=== PATIENT | female | born 1965 | race Caucasian/White ===

== ENCOUNTER → 2017-12-29 | Outpatient (CLI) | payer OTHER ==
[~2017-12-29] MED LIST: ALLEGRA180 MG; REGLAN 10 MG TA10 MG PO
== END ==
LOC: M.RAD 12-19 09:16 → M.ULTRA 09:13 → M.RAD 10:00
DX: N63.10 Unspecified lump in the right breast, unspecified quadrant (principal); N63.20 Unspecified lump in the left breast, unspecified quadrant; N83.201 Unspecified ovarian cyst, right side; N83.202 Unspecified ovarian cyst, left side; R92.8 Other abnormal and inconclusive findings on diagnostic imaging of breast

== ENCOUNTER → 2019-01-11 | Outpatient (CLI) | payer OTHER | LOC: M.RAD 12-29 13:21 → M.ULTRA 09:39 | DX: Z12.31 Encounter for screening mammogram for malignant neoplasm of breast (principal); N83.202 Unspecified ovarian cyst, left side; D26.1 Other benign neoplasm of corpus uteri; Z80.3 Family history of malignant neoplasm of breast ==

== ENCOUNTER → 2019-03-13 | Outpatient (CLI) | payer OTHER | LOC: M.ULTRA 09:00 | DX: N83.02 Follicular cyst of left ovary (principal); D25.9 Leiomyoma of uterus, unspecified ==

== ENCOUNTER → 2019-11-10 | Outpatient (CLI) | payer OTHER | LOC: M.ERS 08:51 | DX: Z20.828 Contact with and (suspected) exposure to other viral communicable diseases (principal) ==

== ENCOUNTER → 2020-01-22 | Outpatient (CLI) | payer OTHER | LOC: M.RAD 01-15 14:54 → M.ULTRA 01-17 09:00 | PROVIDERS: ATTEND Obstetrics & Gynecology | DX: Z12.31 Encounter for screening mammogram for malignant neoplasm of breast (principal); D25.9 Leiomyoma of uterus, unspecified; N64.89 Other specified disorders of breast ==

== ENCOUNTER → 2020-09-10 | Outpatient (CLI) | payer OTHER | LOC: M.RAD 13:49 | PROVIDERS: ATTEND Orthopaedic Surgery | DX: M19.041 Primary osteoarthritis, right hand (principal) ==